=== PATIENT | male | born 1960 | race Caucasian/White ===

== ENCOUNTER 2022-12-24 08:01 | Day surgery (SDC) | payer MEDICARE, MEDICAID ==
[~2022-12-24] VITALS: Ht 182.9 cm; Wt 204.0 kg
[2022-12-24] MEDS ORDERED: SUCR1TAB PO (08:30)
[2022-12-24] MEDS ORDERED: POTA-206 PO (08:30)
[2022-12-24] MEDS ORDERED: HYDR25TA5 PO (08:30)
[2022-12-24] MEDS ORDERED: FURO20TA4 PO (08:30)
[2022-12-24] MEDS ORDERED: NITR0.4T51 SL (08:30)
[2022-12-24] MEDS ORDERED: VITA-268 PO (08:30)
[2022-12-24] MEDS ORDERED: LOSA100T57 PO (08:30)
[2022-12-24] MEDS ORDERED: METO200T49 PO (08:30)
[2022-12-24] MEDS ORDERED: ATOR10TA70 PO (08:30)
[2022-12-24] MEDS ORDERED: DOCU-21 PO (08:30)
[2022-12-24] MEDS ORDERED: APIX5TAB3 PO (08:30)
[2022-12-24] MEDS ORDERED: ALLO300T8 PO (08:30)
[2022-12-24] MEDS ORDERED: CHOL100025 PO (08:30)
[2022-12-24 08:36] VITALS: BP 120/78
[2022-12-24] MEDS ORDERED: MIDAZolam 1 MG/ML 5ML VIAL ONE (08:47)
[2022-12-24] MEDS ORDERED: fentaNYL/PF 50MCG/1 ML 2ML syringe ONE (08:47)
[2022-12-24] MEDS ORDERED: LIDOcaine Viscous 15ml cup ONE (08:47)
[2022-12-24 09:25] VITALS: BP 120/78
[2022-12-24 09:35] VITALS: BP 117/81
[2022-12-24 09:45] VITALS: BP 129/85
[2022-12-24 09:55] VITALS: BP 122/75
== END 2022-12-24 10:00 | disposition home or self-care (01) ==
LOC: GI LAB 08:01
PROVIDERS: ATTEND Internal Medicine Gastroenterology
DX: K22.70 Barrett's esophagus without dysplasia (principal); K29.50 Unspecified chronic gastritis without bleeding; K20.80 Other esophagitis without bleeding; K22.89 Other specified disease of esophagus; R10.13 Epigastric pain; G89.29 Other chronic pain; M19.90 Unspecified osteoarthritis, unspecified site; J44.9 Chronic obstructive pulmonary disease, unspecified; G47.30 Sleep apnea, unspecified; I48.91 Unspecified atrial fibrillation; F17.290 Nicotine dependence, other tobacco product, uncomplicated; E66.9 Obesity, unspecified; Z68.44 Body mass index [BMI] 60.0-69.9, adult; Z79.899 Other long term (current) drug therapy; Z87.11 Personal history of peptic ulcer disease
CPT/HCPCS: 43239; G0500; J2250; J3010; J7030; Z7512; 88305; 88342; 99152; 99153; A4620